=== PATIENT | male | born 1930 | race Two or more races ===

== ENCOUNTER → 2019-07-06 | Outpatient (CLI) | payer MEDICARE | END | disposition home or self-care (01) | LOC: MSC 14:00 | PROVIDERS: ATTEND Anesthesiology | DX: G89.4 Chronic pain syndrome (principal); M54.16 Radiculopathy, lumbar region; M62.830 Muscle spasm of back; M25.561 Pain in right knee; M25.562 Pain in left knee; F03.90 Unspecified dementia, unspecified severity, without behavioral disturbance, psychotic disturbance, mood disturbance, and anxiety; Z79.899 Other long term (current) drug therapy ==